=== PATIENT | female | born 1985 | race Caucasian/White ===

== ENCOUNTER → 2023-09-13 16:06 | Outpatient (REF) | payer OTHER, SELFPAY | LOC: PNTC 16:06 | PROVIDERS: ATTENDING PHYSICIAN Obstetrics & Gynecology | DX: O09.529 Supervision of elderly multigravida, unspecified trimester (principal) | CPT/HCPCS: 76811 ==

== ENCOUNTER → 2023-11-08 16:17 | Outpatient (REF) | payer OTHER, SELFPAY | LOC: PNTC 16:17 | PROVIDERS: ATTENDING PHYSICIAN Obstetrics & Gynecology | DX: O09.529 Supervision of elderly multigravida, unspecified trimester (principal) | CPT/HCPCS: 76816 ==

== ENCOUNTER → 2023-11-24 06:21 | Day surgery (SDC) | payer OTHER, SELFPAY ==
[2023-11-24] VITALS (13 sets, daily range): BP systolic 100–119; BP diastolic 67–86; BMI 24.6
[2023-11-24] MEDS: TYLENOL 500 MG PO (14:25)
[2023-11-24] MEDS: NORMOSOL-R 1000 IV (14:26)
[2023-11-24] MEDS: ROXICODONE 10 MG PO (20:29)
--- NOTE | 2023-11-24 20:30 | W.PN.UPDATE ---
Update Note
Progress Note Update
I saw Janet this afternoon in L&D unit for NST monitoring prior to going to OR for ORIF left ankle. Surgery being performed by Dr. Alvarez.
I spoke with Dr. Alvarez yesterday to prepare for today's surgery. NST recommended preop and postop and patient was monitored in OR with intermittent monitoring. Reassuring testing.
Reactive NST preop and postop and no concerning findings.
She was seen by me postop in PACU. Awake and looking much better (in less pain than preop).
Had spinal anesthetic. Was given some propofol.
Feeling well. Spinal is wearing off. Dr. Hill was in to see her and reviewed expectations from spinal.
She was made aware baby's heart rate monitoring during surgery was reassuring.
Recommended she make appt in office early next week for OB visit. May call sooner if any concerns. Offered appt sooner (Th or Wed this week) but she declines. I personally feel she may not want to travel that soon after surgery. Discussed with
Ortho that she may take low dose aspirin. He typically Rx aspirin after this type of surgery.
She is cleared for dc from Ob standpoint. HAs follow up with Ortho in 2 wks. Aware to callif any concerns.
== END ==
LOC: SDS 06:21
PROVIDERS: ATTENDING PHYSICIAN Student in an Organized Health Care Education/Training Program; CONSULT PHYSICIAN Obstetrics & Gynecology
DX: O9A.213 Injury, poisoning and certain other consequences of external causes complicating pregnancy, third trimester (principal); S82.842A Displaced bimalleolar fracture of left lower leg, initial encounter for closed fracture; W10.9XXA Fall (on) (from) unspecified stairs and steps, initial encounter; Z3A.30 30 weeks gestation of pregnancy
CPT/HCPCS: 27814; 73600; 76000; C1713

== ENCOUNTER 2023-12-07 16:41 | Observation (INO) | payer OTHER, SELFPAY ==
[2023-12-07 16:54] VITALS: BP 113/73; BMI 23.6
[2023-12-07 18:22] LABS: Urine Albumin Negative (Neg - Trace); Urine Bilirubin Negative (Negative); Urine Character Clear (Clear); Urine Color Yellow; Urine Glucose Negative (Negative); Urine Ketone Trace (Negative); Urine Leukocyte Negative (Negative); Urine Nitrite Negative (Negative); Urine Occult Blood Negative (Negative); Urine Specific Gravity 1.015 (<1.030); Urine Urobilinogen Negative (Neg - 1+)
== END 2023-12-07 18:56 | disposition home or self-care (01) ==
LOC: LDRP 16:41
PROVIDERS: ADMITTING PHYSICIAN Obstetrics & Gynecology; FAMILY PHYSICIAN Family Medicine
DX: O36.8130 Decreased fetal movements, third trimester, not applicable or unspecified (principal); Z3A.32 32 weeks gestation of pregnancy; O09.513 Supervision of elderly primigravida, third trimester; R10.9 Unspecified abdominal pain; S82.892D Other fracture of left lower leg, subsequent encounter for closed fracture with routine healing; X58.XXXD Exposure to other specified factors, subsequent encounter
CPT/HCPCS: 59025; 76815; 81003; G0378

== ENCOUNTER → 2023-12-23 06:45 | Outpatient (REF) | payer OTHER, SELFPAY | LOC: PNTC 06:45 | PROVIDERS: ATTENDING PHYSICIAN Obstetrics & Gynecology | DX: O09.519 Supervision of elderly primigravida, unspecified trimester (principal) | CPT/HCPCS: 76816 ==

== ENCOUNTER 2024-01-23 18:44 | Inpatient (IN) | payer OTHER, SELFPAY ==
[2024-01-23 18:49] VITALS: BP 126/90; BMI 25.5
[2024-01-23 19:32] LABS: % Basophils 0.2 % (0-2); % Eosinophils 0.9 % (0-6); % Immature Granulocytes 0.7 % (0-0.5); % Lymphocytes 14.5 % (20.5-51.1); % Neutrophils 77.7 % (42.2-75.2); Absolute Eosinophils 0.1 10^3/uL (0-0.7); Absolute Immature Granulocytes 0.1 10^3/uL (0-0.05); Absolute Lymphocytes 1.8 10^3/uL (1.2-3.4); Absolute Monocytes 0.7 10^3/uL (0.1-0.6); Absolute Neutrophils 9.5 10^3/uL (1.4-6.5); Hematocrit 27.9 % (37.0-47.0); Hemoglobin 9.5 g/dL (12.0-16.0); Mean Corp Hgb Conc. 34.1 g/dL (33.0-37.0); Mean Corpuscular Hgb 25.7 pg (27.0-31.0); Mean Corpuscular Volume 75.6 fL (81.0-99.0); Nucleated Red Blood Cells % 0 %; Platelet Count 174 10^3/uL (130-400); Red Blood Cell Count 3.69 10^6/uL (4.20-5.40); Red Cell Dist. Width 13.8 % (11.5-14.5); White Blood Cell Count 12.3 10^3/uL (4.8-10.8)
[2024-01-23] MEDS: CYTOTEC 25 MICROGRAM VAG (20:52)
[2024-01-23] MEDS: BENADRYL 50 MG PO (21:19)
[2024-01-23] MEDS: MORPHINE SULFATE 2 MG IV (23:21)
[2024-01-24] MEDS: CYTOTEC 50 MICROGRAM PO ×3 (00:45→09:08)
[2024-01-24] MEDS: MORPHINE SULFATE 2 MG IV ×2 (05:03→14:08)
[2024-01-24] MEDS: CYTOTEC PO ×3 (14:36→20:59)
[2024-01-24] MEDS: FENTANYL/BUPIVACAINE 100 EPIDURAL ×2 (14:56→22:48)
[2024-01-24] MEDS: SUBLIMAZE 100 MCG EPIDURAL (14:56)
[2024-01-24] MEDS: PITOCIN 30 UNITS/NSS 500 ML IV (21:14)
[2024-01-24] MEDS: LR 1000 IV (21:16)
[2024-01-25] MEDS: LR 1000 IV (06:00)
[2024-01-25] MEDS: FENTANYL/BUPIVACAINE 100 EPIDURAL (06:18)
[2024-01-25] MEDS: PITOCIN 30 UNITS/NSS 500 ML IV (06:37)
[2024-01-25] MEDS: MORPHINE SULFATE 2 MG IV (06:40)
[2024-01-25] MEDS: XYLOCAINE-MPF 1% VIAL 10 ML INFIL (06:47)
[2024-01-25] MEDS: PROTONIX 40 MG PO (08:48)
[2024-01-25] MEDS: MOTRIN 600 MG PO ×2 (08:48→14:48)
[2024-01-25] MEDS: PRENATAL PLUS 1 TABLET PO (08:49)
[2024-01-25] MEDS: SENOKOT-S 1 TABLET PO (14:48)
[2024-01-25] MEDS: TYLENOL 650 MG PO (14:48)
[2024-01-26] MEDS: MOTRIN 600 MG PO ×4 (00:17→18:23)
[2024-01-26] MEDS: TYLENOL 650 MG PO ×4 (00:17→18:23)
[2024-01-26 05:47] LABS: Hematocrit 24.4 % (37.0-47.0); Hemoglobin 7.9 g/dL (12.0-16.0)
[2024-01-26] MEDS: PRENATAL PLUS 1 TABLET PO (09:00)
[2024-01-26] MEDS: SENOKOT-S 1 TABLET PO (09:00)
[2024-01-26] MEDS: PROTONIX 40 MG PO (09:00)
[2024-01-27] MEDS: TYLENOL 650 MG PO (01:10)
[2024-01-27] MEDS: MOTRIN 600 MG PO (01:10)
[2024-01-27] MEDS: PRENATAL PLUS 1 TABLET PO (07:45)
[2024-01-27] MEDS: FEOSOL 325 MG PO (07:45)
[2024-01-27] MEDS: PROTONIX 40 MG PO (07:45)
[2024-01-28 12:09] LABS: Syphilis/T. pallidum Ab Reflex Negative (Negative)
== END 2024-01-27 13:07 | disposition home or self-care (01) | DRG 807 ==
LOC: LDRP 18:44
PROVIDERS: Obstetrics & Gynecology; ADMITTING PHYSICIAN Obstetrics & Gynecology
PROC: 3E0P7VZ Introduction of Hormone into Female Reproductive, Via Natural or Artificial Opening (ICD-10-PCS; 2024-01-23)
PROC: 10E0XZZ Delivery of Products of Conception, External Approach (ICD-10-PCS; 2024-01-25)
PROC: 0KQM0ZZ Repair Perineum Muscle, Open Approach (ICD-10-PCS; 2024-01-25)
DX: O69.81X0 Labor and delivery complicated by cord around neck, without compression, not applicable or unspecified (principal); Z37.0 Single live birth; Z3A.39 39 weeks gestation of pregnancy; O70.1 Second degree perineal laceration during delivery; O69.82X0 Labor and delivery complicated by other cord entanglement, without compression, not applicable or unspecified; J45.909 Unspecified asthma, uncomplicated; O90.81 Anemia of the puerperium; D64.9 Anemia, unspecified; Z88.1 Allergy status to other antibiotic agents; Z88.2 Allergy status to sulfonamides; Z87.01 Personal history of pneumonia (recurrent)
CPT/HCPCS: 36415; 85014; 85018; 85025; 86780; 86850; 86900; 86901